=== PATIENT | female | born 1995 | race Caucasian/White ===

== ENCOUNTER 2017-10-04 09:07 | Day surgery (SDC) | payer BC ==
[2017-10-03 08:38] VITALS: BMI 28.3
--- NOTE | 2017-10-04 07:47 | P.GSHP ---
History of Present Illness H&P Date: 10/04/17 CHIEF COMPLAINT: GERD and colon screen HISTORY OF PRESENT ILLNESS: The patient is a 22-year-old female who presents with gastroesophageal reflux disease and change in bowel habits. Upper and lower endoscopy were offered for further evaluation and management. PAST MEDICAL HISTORY: Please see list. PAST SURGICAL HISTORY: Please see list. MEDICATIONS: Please see list. ALLERGIES: Please see list. SOCIAL HISTORY: No illicit drug use FAMILY HISTORY: No reports of Crohn disease or ulcerative colitis. REVIEW OF ORGAN SYSTEMS: CONSTITUTIONAL: No reports of fevers or chills. GI: Denies any blood in stools or constipation. PHYSICAL EXAM: VITAL SIGNS: Stable GENERAL: Well-developed pleasant in no acute distress. HEENT: No scleral icterus. Extraocular movements grossly intact. Moist buccal mucosa. NECK: Supple without lymphadenopathy. CHEST: Unlabored respirations. Equal bilateral excursions. CARDIOVASCULAR: Regular rate and rhythm. Distal 2+ pulses. ABDOMEN: Soft, nondistended. MUSCULOSKELETAL: No clubbing, cyanosis, or edema. ASSESSMENT: 1. Gastroesophageal reflux disease 2. Change in bowel habits. PLAN: 1. Recommend proceeding with an upper and lower endoscopy Past Medical History Past Medical History: GERD/Reflux Additional Past Medical History / Comment(s): bleeding with stools and constipation History of Any Multi-Drug Resistant Organisms: None Reported Additional Past Surgical History / Comment(s): cyst removed from tailbone,ORIF rt thumb with hardware later removed,wisdom teeth Past Anesthesia/Blood Transfusion Reactions: No Reported Reaction Smoking Status: Never smoker - Past Family History Father Family Medical History: No Reported History Medications and Allergies Home Medications Medication Instructions Recorded Confirmed Type Etonogestrel/Ethinyl Estradiol 1 each VG Q21D 10/03/17 10/03/17 History [Nuvaring Vaginal Ring] Omeprazole [PriLOSEC] 20 mg PO AC-BRKFST 10/03/17 10/03/17 History Polyethylene Glycol 3350 [Miralax] 17 gm PO DAILY 10/03/17 10/03/17 History Allergies Allergy/AdvReac Type Severity Reaction Status Date / Time erythromycin base Allergy Rash/Hives Verified 10/03/17 08:30 Penicillins Allergy Rash/Hives Verified 10/03/17 08:30
[~2017-10-04 09:07] MED LIST: LACTATED RINGERS 1,000 ML IV SCH
[2017-10-04 10:00] VITALS: TEMP 98
[2017-10-04] MEDS ORDERED: LIDOCAINE 1% 20 ML VIAL (10MG/ML) FOR IV START INTRADERMA ONE (10:09)
[2017-10-04] MEDS ORDERED: GLYCOPYRROLATE 0.2 MG/ML 2 ML VIAL ONE (10:26)
[2017-10-04] MEDS ORDERED: PROPOFOL 10 MG/ML 20 ML VIAL IV ONE (10:26)
[2017-10-04] MEDS ORDERED: LIDOCAINE 1% INJ 10MG/ML (20 ML MDV) ONE (10:26)
--- NOTE | 2017-10-04 10:41 | P.PCN ---
Date of Procedure: 10/04/17 Description of Procedure: PREOPERATIVE DIAGNOSIS: Gastroesophageal reflux disease. POSTOPERATIVE DIAGNOSIS: Gastritis. Gastroesophageal reflux disease. Diaphragmatic hiatal hernia without obstruction. OPERATION: Esophagogastroduodenoscopy with biopsies along antrum. SURGEON: Sarah Núñez MD ANESTHESIA: MAC. INDICATIONS: The patient is a 22-year-old female who presents with a history of reflux disease. Benefits and risks of the procedure were described. Informed consent was obtained. DESCRIPTION: The patient was brought into the endoscopy suite and laid in the left lateral decubitus position. An Olympus gastroscope was passed along the posterior oropharynx down to the distal esophagus where the squamocolumnar junction was encountered at 36 cm from the incisors. The stomach was entered and no bile reflux was found. Additional findings are listed below. Biopsies with cold forceps were obtained of the antrum. The first through third portion of the duodenum was examined and unremarkable. Retroflexion of the scope confirmed Hill grade 4 lower esophageal valve. The squamocolumnar junction demostrated LA grade B erosive esophagitis. The stomach was desufflated. The patient tolerated the procedure well. FINDINGS: Squamocolumnar junction 36 cm from the incisors. Diaphragmatic hiatus at 38 cm. Hiatal hernia 2 cm. Hill grade 3 lower esophageal valve. LA grade B erosive esophagitis. Chronic gastritis. No active duodenitis. RECOMMENDATIONS: Upper endoscopy as needed.
--- NOTE | 2017-10-04 10:57 | P.PCN ---
Date of Procedure: 10/04/17 Description of Procedure: PREOPERATIVE DIAGNOSIS: Change in bowel habits. Rectal bleeding. POSTOPERATIVE DIAGNOSIS: Change in bowel habits. Rectal bleeding. OPERATION: Colonoscopy beyond the splenic flexure. SURGEON: Sarah Núñez MD. ANESTHESIA: MAC. INDICATIONS: The patient is a 22-year-old female who presents for change in bowel habits and rectal bleeding. Benefits and risks were described and informed consent was obtained. DESCRIPTION OF PROCEDURE: The patient had undergone Gatorade, MiraLAX and Dulcolax prep. She had been brought into the operating room and laid in the left lateral decubitus position. After adequate intravenous sedation, the rectum was examined with 2% lidocaine jelly. No external hemorrhoids were encountered. The rectal tone was within normal limits. No lesions were palpated in the rectal vault. An Olympus colonoscope was advanced through a tortuous sigmoid bolus. She had extremely high splenic flexure. Separately she was repositioned to prone position. Despite multiple maneuvers including abdominal wall pressure, the scope was advanced beyond the splenic flexure however without visualization of the ascending colon. To prevent injury or harm to the patient the colonoscope was discontinued beyond the splenic flexure. The prep was excellent with clear visualization of the mucosal folds. The scope was removed with visualization of each mucosal fold. No scattered diverticulosis was encountered. No colonic polyps were found. No evidence of focal colitis was found. Retroflexion of the scope demonstrated no grade 1 internal hemorrhoids wit active bleeding or inflammation. The colon was desufflated. The patient had tolerated the procedure well. Withdrawal time was over 6 minutes. FINDINGS: No internal hemorrhoids, grade 1 No external prolapsed hemorrhoids. No arteriovenous malformations. No adenomatous polyps. No focal colitis. Redundant sigmoid colon and high splenic flexure. Resolved anal fissure. RECOMMENDATIONS: Lower endoscopy per screening guidelines. Plan - Discharge Summary New Discharge Prescriptions: No Action Polyethylene Glycol 3350 [Miralax] 17 gm PO DAILY Omeprazole [PriLOSEC] 20 mg PO AC-BRKFST Etonogestrel/Ethinyl Estradiol [Nuvaring Vaginal Ring] 1 each VG Q21D Discharge Medication List Etonogestrel/Ethinyl Estradiol [Nuvaring Vaginal Ring] 1 each VG Q21D 10/03/17 [ History] Omeprazole [PriLOSEC] 20 mg PO AC-BRKFST 10/03/17 [History] Polyethylene Glycol 3350 [Miralax] 17 gm PO DAILY 10/03/17 [History] Follow up Appointment(s)/Referral(s): Sarah Núñez MD [STAFF PHYSICIAN] - 10/10/17 Patient Instructions/Handouts: Hiatal Hernia (DC), *Surgery [facility] - (Anesthesia) Endoscopy Discharge Instructions Discharge Disposition: HOME SELF-CARE
[2017-10-04 11:03] VITALS: RESP 18
[2017-10-04 11:20] VITALS: BP 107/59; PULSE 72
== END 2017-10-04 11:59 | disposition home or self-care (01) ==
LOC: ORWHC2ENDO 09:07
PROVIDERS: ATTEND Surgery Plastic and Reconstructive Surgery
DX: K29.50 Unspecified chronic gastritis without bleeding (principal); K21.0 Gastro-esophageal reflux disease with esophagitis; K44.9 Diaphragmatic hernia without obstruction or gangrene; Q43.8 Other specified congenital malformations of intestine; R19.4 Change in bowel habit; K62.5 Hemorrhage of anus and rectum; Z79.899 Other long term (current) drug therapy; Z88.1 Allergy status to other antibiotic agents; Z88.0 Allergy status to penicillin
CPT/HCPCS: 81025; 88305; 45378; 43239; J2001; J2704

== ENCOUNTER 2020-03-11 16:15 | Inpatient (IN) | payer BC, OTHER ==
[2020-03-11] MEDS ORDERED: LIDOCAINE 0.5% (PF) 5 MG/ML (50 ML SDV) SQ PRN (16:27)
[2020-03-11] MEDS ORDERED: METHYLERGONOVINE 0.2 MG/ML 1 ML AMP IM PRN (16:27)
[2020-03-11] MEDS ORDERED: CARBOPROST TROMETHAMINE 250 MCG/ML 1 ML AMP IM PRN (16:27)
[2020-03-11] MEDS ORDERED: OXYTOCIN 10 UNIT/ML 1 ML VIAL IM PRN (16:27)
[2020-03-11] MEDS ORDERED: TERBUTALINE 1 MG/ML VIAL SQ PRN (16:27)
[2020-03-11] MEDS ORDERED: LACTATED RINGERS 1,000 ML IV SCH (16:30)
[2020-03-11] MEDS ORDERED: OXYTOCIN 30 UNITS/500 ML NS 30 UNIT in SALINE 1 500ML.BAG IV SCH (16:30)
[2020-03-11 17:21] LABS: Basophils % (A) 0 %; Eosinophils # (A) 0.1 k/uL (0-0.7); Eosinophils % (A) 1 %; HGB 11.7 gm/dL (11.4-16.0); Lymphocytes # (A) 1.5 k/uL (1.0-4.8); Lymphocytes % (A) 15 %; MCH 33.4 pg (25.0-35.0); MCHC 34.5 g/dL (31.0-37.0); MCV 96.8 fL (80.0-100.0); Mean Platelet Volume 7.9; Monocytes # (A) 0.4 k/uL (0-1.0); Monocytes % (A) 4 %; Neutrophils # (A) 8.2 k/uL (1.3-7.7); Neutrophils % (A) 79 %; Platelet Count 235 k/uL (150-450); RBC 3.51 m/uL (3.80-5.40); RDW 12.9 % (11.5-15.5); WBC 10.3 k/uL (3.8-10.6)
[2020-03-11] MEDS: BUTORPHANOL 1 MG/ML 1 ML VIAL IV PRN ×2 (19:37→21:35)
[2020-03-11] MEDS ORDERED: ROPIVACAINE 5MG/ML 20ML VIAL ONE (22:15)
[2020-03-11] MEDS ORDERED: SODIUM CHLORIDE 0.9% 100 ML BAG ONE (22:15)
[2020-03-11] MEDS ORDERED: fentaNYL (PF) 50 MCG/ML 5 ML AMP ONE (22:15)
--- NOTE | 2020-03-12 02:28 | P.HPOB ---
History of Present Illness H&P Date: 03/11/20 Chief Complaint: Induction of labor 24 year old presents at 39 weeks 3 days for induction of labor. Her cervix is 1-2/70/-2. She is not asmita. heart tones 130 with moderate variability and reactive. Review of Systems All systems: negative Constitutional: Denies chills, Denies fever Eyes: denies blurred vision, denies pain Ears, nose, mouth and throat: Denies headache, Denies sore throat Cardiovascular: Denies chest pain, Denies shortness of breath Respiratory: Denies cough Gastrointestinal: Denies abdominal pain, Denies diarrhea, Denies nausea, Denies vomiting Genitourinary: Denies dysuria, Denies hematuria Musculoskeletal: Denies myalgias Integumentary: Denies pruritus, Denies rash Neurological: Denies numbness, Denies weakness Psychiatric: Denies anxiety, Denies depression Endocrine: Denies fatigue, Denies weight change Past Medical History Past Medical History: GERD/Reflux Additional Past Medical History / Comment(s): Obstetric history: This is her first and she's had care with me since the first trimester. Blood type is A-, amylase negative, rubella immune, hepatitis B-, GBS negative, RPR nonreactive. History of Any Multi-Drug Resistant Organisms: None Reported Additional Past Surgical History / Comment(s): cyst removed from tailbone,ORIF rt thumb with hardware later removed,wisdom teeth Past Anesthesia/Blood Transfusion Reactions: No Reported Reaction Past Psychological History: No Psychological Hx Reported Smoking Status: Never smoker Past Alcohol Use History: Occasional Past Drug Use History: None Reported - Past Family History Father Family Medical History: AFIB, Hypertension Medications and Allergies Home Medications Medication Instructions Recorded Confirmed Type Ferrous Sulfate [Iron] 27 mg PO DAILY 03/11/20 03/11/20 History Pnv No.95/Ferrous Fum/Folic AC 1 each PO DAILY 03/11/20 03/11/20 History [ Multivitamin Tablet] Allergies Allergy/AdvReac Type Severity Reaction Status Date / Time erythromycin base Allergy Rash/Hives Verified 03/11/20 16:25 Penicillins Allergy Rash/Hives Verified 03/11/20 16:25 Exam Osteopathic Statement: *. No significant issues noted on an osteopathic structural exam other than those noted in the History and Physical/Consult. Vital Signs Temp Pulse Resp BP Pulse Ox 03/11/20 16:45 98.2 F 80 18 131/74 98 Intake and Output 03/11/20 03/11/20 03/12/20 14:59 22:59 06:59 Other: # Voids 1 Weight 87.543 kg Heart: Regular rate and rhythm Lungs: Clear to auscultation bilaterally Abdomen: Soft, nontender Extremities: Negative Homans sign Results Result Diagrams: 03/11/20 16:30 Abnormal Lab Results - Last 24 Hours (Table) 03/11/20 Range/Units 16:30 RBC 3.51 L (3.80-5.40) m/uL Neutrophils # 8.2 H (1.3-7.7) k/uL Assessment and Plan (1) Normal labor Current Visit: Yes Status: Acute Code(s): O80 - ENCOUNTER FOR FULL-TERM UNCOMPLICATED DELIVERY; Z37.9 - OUTCOME OF DELIVERY, UNSPECIFIED SNOMED Code(s): 61942290 Plan: 1. Induction of labor with amniotomy and Pitocin 2. Anticipate normal vaginal delivery
--- NOTE | 2020-03-12 02:29 | P.PROBDLV ---
Vaginal Delivery Note - . Vaginal Delivery Note: 24 year old presents at 39 weeks 3 days for induction of labor. Her cervix is 1-2/70/-2. She is not asmita. heart tones 130 with moderate variability and reactive. Amniotomy was performed at 1654, meconium fluid seen. Pitocin was also started. She was uncomfortable in a few hours and did get some Stadol. When she was about 4 centers dilated she did get an epidural was comfortable. Her cervix completely dilated at 1:23 AM. She pushed, delivered a viable male over intact perineum under epidural anesthesia at 2:06 AM. Head delivered OA, anterior shoulder delivered gentle downward guidance followed by posterior shoulder and rest of body. Nose and mouth bulb suctioned, cord clamped and cut, infant placed on mother's abdomen. Apgars 7, 9, weight 7 lbs. 7 oz. Placenta delivered spontaneously, intact with three-vessel cord at 2:08 AM. Vagina, cervix, and perineum were inspected. Second-degree midline laceration was repaired with 3-0 Vicryl. Estimated blood loss 200 mL. Mother and baby in stable condition.
[2020-03-12] MEDS ORDERED: OXYTOCIN 20 UNITS/1000 ML NS 1,000 ML IV SCH ×2 (03:00→03:30)
[2020-03-12] MEDS ORDERED: LANOLIN CREAM 5 GM TUBE TOPICAL PRN (03:22)
[2020-03-12] MEDS ORDERED: diphenhydrAMINE 50 MG CAP PO PRN (03:22)
[2020-03-12] MEDS ORDERED: BENZOCAINE/MENTHOL SPRAY 1 GM/SPRAY AEROSOL TOPICAL PRN (03:22)
[2020-03-12] MEDS ORDERED: SIMETHICONE 80 MG CHEWABLE PO PRN (03:22)
[2020-03-12] MEDS ORDERED: HYDROCORTISONE 2.5% RECTAL CREAM 30 GM TUBE RECTAL PRN (03:22)
[2020-03-12] MEDS ORDERED: ACETAMINOPHEN TAB 325 MG TAB PO PRN (03:22)
[2020-03-12] MEDS ORDERED: diphenhydrAMINE 50 MG/ML 1 ML VIAL IVP PRN ×2 (03:22)
[2020-03-12] MEDS ORDERED: ZOLPIDEM 5 MG TAB PO PRN (03:22)
[2020-03-12] MEDS ORDERED: diphenhydrAMINE 25 MG CAP PO PRN (03:22)
[2020-03-12] MEDS: IBUPROFEN 600 MG TAB PO PRN ×4 (03:41→23:17)
[2020-03-12] MEDS: SENNOSIDES-DOCUSATE SODIUM 1 EACH TAB PO SCH ×2 (07:41→23:18)
[2020-03-12 20:02] VITALS: RESP 16
[2020-03-13 07:55] LABS: Basophils # (A) 0.1 k/uL (0-0.2); Basophils % (A) 0 %; Eosinophils # (A) 0.2 k/uL (0-0.7); Eosinophils % (A) 2 %; HCT 28.5 % (34.0-46.0); Lymphocytes # (A) 2.4 k/uL (1.0-4.8); Lymphocytes % (A) 20 %; MCH 32.3 pg (25.0-35.0); MCHC 33.7 g/dL (31.0-37.0); MCV 95.6 fL (80.0-100.0); Mean Platelet Volume 7.6; Monocytes # (A) 0.5 k/uL (0-1.0); Monocytes % (A) 4 %; Neutrophils # (A) 8.4 k/uL (1.3-7.7); Neutrophils % (A) 72 %; Platelet Count 192 k/uL (150-450); RBC 2.98 m/uL (3.80-5.40); RDW 13.2 % (11.5-15.5); WBC 11.7 k/uL (3.8-10.6)
[2020-03-13 08:03] LABS: HGB 9.6 gm/dL (11.4-16.0)
--- NOTE | 2020-03-13 08:03 | P.DS ---
Providers Date of admission: 03/11/20 16:15 Expected date of discharge: 03/13/20 Attending physician: Sejal Stern Primary care physician: Stated None - Discharge Diagnosis(es) (1) Normal labor Current Visit: Yes Status: Resolved (2) Normal vaginal delivery Current Visit: Yes Status: Acute Hospital Course: Pt presented for induction of labor. She underwent a normal vaginal delivery without complication. Her pp course was uneventful. She denies N/V, F/C, CP, SOB or calf pain. Her lochia is minimal and pain controlled. She will be discharged home PPD #1 in stable condition to follow up with me in 6 weeks. Plan - Discharge Summary New Discharge Prescriptions: New Ibuprofen [Motrin] 600 mg PO Q6HR PRN #30 tab PRN Reason: Mild Pain Or Fever >= 100.5 No Action Pnv No.95/Ferrous Fum/Folic AC [ Multivitamin Tablet] 1 each PO DAILY Ferrous Sulfate [Iron] 27 mg PO DAILY Discharge Medication List Ferrous Sulfate [Iron] 27 mg PO DAILY 03/11/20 [History] Pnv No.95/Ferrous Fum/Folic AC [ Multivitamin Tablet] 1 each PO DAILY 03/11/20 [History] Ibuprofen [Motrin] 600 mg PO Q6HR PRN #30 tab 03/13/20 [Rx] Follow up Appointment(s)/Referral(s): Sejal Stern DO [Doctor of Osteopathic Medicine] - 6 Weeks Discharge Disposition: HOME SELF-CARE
[2020-03-13] MEDS: IBUPROFEN 600 MG TAB PO PRN (08:23)
[2020-03-13] MEDS: SENNOSIDES-DOCUSATE SODIUM 1 EACH TAB PO SCH (08:23)
[2020-03-13 10:53] VITALS: BP 118/79; PULSE 76; TEMP 98
== END 2020-03-13 12:40 | disposition home or self-care (01) | DRG 807 ==
LOC: 4FBP 16:15
PROVIDERS: ADMIT Obstetrics & Gynecology; ATTEND Obstetrics & Gynecology
PROC: 10E0XZZ Delivery of Products of Conception, External Approach (ICD-10-PCS; principal; 2020-03-12)
PROC: 0KQM0ZZ Repair Perineum Muscle, Open Approach (ICD-10-PCS; 2020-03-12)
PROC: 10907ZC Drainage of Amniotic Fluid, Therapeutic from Products of Conception, Via Natural or Artificial Opening (ICD-10-PCS; 2020-03-12)
PROC: 3E033VJ Introduction of Other Hormone into Peripheral Vein, Percutaneous Approach (ICD-10-PCS; 2020-03-12)
PROC: 3E0R3BZ Introduction of Anesthetic Agent into Spinal Canal, Percutaneous Approach (ICD-10-PCS; 2020-03-12)
DX: O77.0 Labor and delivery complicated by meconium in amniotic fluid (principal); Z37.0 Single live birth; O99.62 Diseases of the digestive system complicating childbirth; K21.9 Gastro-esophageal reflux disease without esophagitis; O70.1 Second degree perineal laceration during delivery; Z3A.39 39 weeks gestation of pregnancy; Z79.899 Other long term (current) drug therapy; Z98.890 Other specified postprocedural states; Z88.1 Allergy status to other antibiotic agents; Z88.0 Allergy status to penicillin; Z82.49 Family history of ischemic heart disease and other diseases of the circulatory system
CPT/HCPCS: 85025; 86850; 86870; 86880; 86900; 86901

== ENCOUNTER 2023-02-23 23:20 | Outpatient (CLI) | payer BC ==
[2023-02-24 00:28] VITALS: BP 131/77; PULSE 71; RESP 16; TEMP 97.1
--- NOTE | 2023-02-28 17:19 | P.MSEPDOC ---
Presenting Problems - Arrival Data Date of Arrival on Unit: 02/24/23 Time of Arrival on Unit: 23:20 Mode of Transport: Ambulatory - Complaint OB-Reason for Admission/Chief Complaint: Possible Onset of Labor Comment: pt. presents to triage due to contractions every 8-10min apart starting at 6pm. today, rating 5/10 pain Medical History - Information : 2 Para: 1 Term: 1 : 0 Abortions: Spontaneous or Elective: 0 Number of Living Children: 1 - Gestational Age Gestational Age by HOWARD (wks/days): 34 Weeks and 6 Days Review of Systems - Review of Systems Constitutional: No problems Breast: No problems ENT: No problems Cardiovascular: No problems Respiratory: No problems Gastrointestinal: No problems Genitourinary: No problems Musculoskeletal: No problems Neurological: No problems Skin: No problems Vital Signs - Temperature Temperature: 97.1 F Temperature Source: Temporal Artery Scan - Pulse Pulse Oximetery Pulse Rate: 71 Pulse Assessment Method: Automatic Cuff - Respirations Respiratory Rate: 16 Oxygen Delivery Method: Room Air O2 Sat by Pulse Oximetry: 97 - Blood Pressure Right Arm Blood Pressure: 131/77 Blood Pressure Mean: 95 Blood Pressure Source: Automatic Cuff Medical Screen Scoring - Cervical Exam Dilation (cm): 0 - Uterine Contractions Frequency From (mins): 3 Frequency To (mins): 8 Duration From (seconds): 40 Duration To (seconds): 90 Intensity: Mild Resting: Soft to palpation - Assessment - Baby A Baseline FHR: 130 Heart Rate - NICHD Category: Category I (Normal) NST: Reactive Physician Notification - Physician Notified Physician Notified Date: 02/24/23 Physician Notified Time: 23:58 Physician: Sejal Stern New Order Received: Yes - Notification Comment Comment: Dr. Stern checked patients cervix she gave patient discharge instructions and. patient is to follow up on same day as ultrasound 02/28/23Monday. Patient and . verbally aware of discharge instructions. Patient ambulated out of triage with Maternal Triage Index - Prompt/Priority 3 Prompt Priority 3: Yes Criteria Met for Priority 3: pt. presents to triage due to contractions every 8- 10min apart starting at 6pm. today, rating 5/[address] Stern checked patients cervix she gave patient discharge instructions and. patient is to follow up on same day as ultrasound 02/28/23Monday. Patient and . verbally aware of discharge instructions. Patient ambulated out of triage with Disposition - Disposition OB Disposition: Discharge to home Discharge Date: 02/24/23 Discharge Time: 00:00 I agree with the RN Medical Screening Exam: Yes Case reviewed; plan agreed upon as documented in EMR&OBIX.: Yes Diagnosis: FALSE LABOR BEFORE 37 COMPLETED WEEKS OF GEST, THIRD TRI
== END 2023-02-24 | disposition home or self-care (01) ==
LOC: FBPOP 23:20
PROVIDERS: ATTEND Obstetrics & Gynecology
DX: O47.03 False labor before 37 completed weeks of gestation, third trimester (principal); Z3A.34 34 weeks gestation of pregnancy; Z88.1 Allergy status to other antibiotic agents; Z88.0 Allergy status to penicillin
CPT/HCPCS: 59025; 99213

== ENCOUNTER 2023-03-29 01:33 | Outpatient (CLI) | payer BC ==
[2023-03-29 03:38] VITALS: BP 128/86; PULSE 65; RESP 16; TEMP 96.3
--- NOTE | 2023-03-29 07:19 | P.MSEPDOC ---
Presenting Problems - Arrival Data Date of Arrival on Unit: 03/29/23 Time of Arrival on Unit: 01:33 Mode of Transport: Ambulatory - Complaint OB-Reason for Admission/Chief Complaint: Possible Onset of Labor Comment: Patient presents to triage with complaints of contractions since 1800 yesterday evening every 4-5 minutes, rating pain with contractions 6/10. Patient denies vaginal bleeding and leaking fluid. Medical History - Information : 2 Para: 1 Term: 1 : 0 Abortions: Spontaneous or Elective: 0 Number of Living Children: 1 - Gestational Age Gestational Age by HOWARD (wks/days): 39 Weeks and 4 Days Review of Systems - Review of Systems Constitutional: No problems Breast: No problems ENT: No problems Cardiovascular: No problems Respiratory: No problems Gastrointestinal: No problems Genitourinary: No problems Musculoskeletal: No problems Neurological: No problems Skin: No problems Vital Signs - Temperature Temperature: 96.3 F Temperature Source: Temporal Artery Scan - Pulse Pulse Oximetery Pulse Rate: 65 Pulse Assessment Method: Pulse Oximetry - Respirations Respiratory Rate: 16 Oxygen Delivery Method: Room Air O2 Sat by Pulse Oximetry: 98 - Blood Pressure Right Arm Blood Pressure: 128/86 Blood Pressure Mean: 100 Blood Pressure Source: Automatic Cuff Medical Screen Scoring - Cervical Exam Membranes: Intact - Uterine Contractions Frequency From (mins): 4 Frequency To (mins): 5 Duration From (seconds): 40 Duration To (seconds): 80 Intensity: Moderate Resting: Soft to palpation - Assessment - Baby A Baseline FHR: 125 Heart Rate - NICHD Category: Category I (Normal) NST: Reactive Physician Notification - Physician Notified Physician Notified Date: 03/29/23 Physician Notified Time: 03:10 Physician: Maik Pires New Order Received: Yes Maternal Triage Index - Maternal Triage Index Presenting for scheduled procedure w/no complaint: No - Stat/Priority 1 Stat Priority 1: No - Urgent/Priority 2 Urgent Priority 2: No - Prompt/Priority 3 Prompt Priority 3: Yes Criteria Met for Priority 3: Dr. Pires returned PRESLEY pompa reported on maternal and status,. contraction pattern and no cervical changed noted after 1 hour. Reported on reactive NST. and negative amnisure. Orders to discharge home. Disposition - Disposition OB Disposition: Discharge to home Discharge Date: 03/29/23 Discharge Time: 03:27 I agree with the RN Medical Screening Exam: Yes Case reviewed; plan agreed upon as documented in EMR&OBIX.: Yes Diagnosis: FALSE LABOR AT OR AFTER 37 COMPLETED WEEKS OF GESTATION
== END 2023-03-29 03:27 | disposition home or self-care (01) ==
LOC: FBPOP 01:33
PROVIDERS: ATTEND Obstetrics & Gynecology
DX: O47.1 False labor at or after 37 completed weeks of gestation (principal); Z3A.39 39 weeks gestation of pregnancy; Z88.0 Allergy status to penicillin; Z88.1 Allergy status to other antibiotic agents
CPT/HCPCS: 59025; 84112; 99213

== ENCOUNTER 2023-04-01 04:42 | Outpatient (CLI) | payer BC ==
[2023-04-01 07:22] VITALS: BP 127/72; PULSE 79; RESP 16; TEMP 98
--- NOTE | 2023-04-02 08:48 | P.MSEPDOC ---
Presenting Problems - Arrival Data Date of Arrival on Unit: 04/01/23 Time of Arrival on Unit: 04:42 Mode of Transport: Ambulatory - Complaint OB-Reason for Admission/Chief Complaint: Possible Onset of Labor Medical History - Information : 2 Para: 1 Term: 1 : 0 Abortions: Spontaneous or Elective: 0 Number of Living Children: 1 - Gestational Age Gestational Age by HOWARD (wks/days): 40 Weeks and 0 Days Review of Systems - Review of Systems Constitutional: No problems Breast: No problems ENT: No problems Cardiovascular: No problems Respiratory: No problems Gastrointestinal: No problems Genitourinary: No problems Musculoskeletal: No problems Neurological: No problems Skin: No problems Vital Signs - Temperature Temperature: 98.0 F Temperature Source: Temporal Artery Scan - Pulse Pulse Oximetery Pulse Rate: 79 Pulse Assessment Method: Pulse Oximetry - Respirations Respiratory Rate: 16 Oxygen Delivery Method: Room Air O2 Sat by Pulse Oximetry: 97 - Blood Pressure Right Arm Blood Pressure: 127/72 Blood Pressure Mean: 90 Blood Pressure Source: Automatic Cuff Medical Screen Scoring - Cervical Exam Dilation (cm): 3 Effacement (%): 70 Station: -3 Membranes: Intact - Uterine Contractions Frequency From (mins): 2 Frequency To (mins): 4 Duration From (seconds): 70 Duration To (seconds): 110 Intensity: Moderate Resting: Soft to palpation - Assessment - Baby A Baseline FHR: 120 Heart Rate - NICHD Category: Category I (Normal) NST: Reactive Physician Notification - Physician Notified Physician Notified Date: 04/01/23 Physician Notified Time: 06:00 Physician: Sejal Stern - Notification Comment Comment: Dr. Stern notified of pt's arrival to. triage with c/o UC's q1-3min since 0300. Report given. including maternal and status, cervical exams. and POC RN discussed with pt. Dr. Stern in agreement. with pt to stay for a cervical recheck again in 1. hour. RN to call Dr. Stern with results. Maternal Triage Index - Maternal Triage Index Presenting for scheduled procedure w/no complaint: No - Stat/Priority 1 Stat Priority 1: No - Urgent/Priority 2 Urgent Priority 2: No - Prompt/Priority 3 Prompt Priority 3: No - Non-Urgent/Priority 4 Non-Urgent Priority 4: Yes Criteria Met for Priority 4: Pt is a with HOWARD 04/01/23 here at 40.0 weeks of gestation with c/o UC's. q1-3min apart since 0300 this AM. Pt reports that she was in triage a few days ago for. UC's as well and they have only progressed. Pt talking through UC's, coping well. Pt. denies any complications with the . Disposition - Disposition OB Disposition: Triage Discharge Date: 04/01/23 Discharge Time: 07:16 I agree with the RN Medical Screening Exam: Yes Case reviewed; plan agreed upon as documented in EMR&OBIX.: Yes Diagnosis: PRIMARY INADEQUATE CONTRACTIONS
== END 2023-04-01 07:16 | disposition home or self-care (01) ==
LOC: FBPOP 04:42
PROVIDERS: ATTEND Obstetrics & Gynecology
DX: O62.0 Primary inadequate contractions (principal); Z3A.40 40 weeks gestation of pregnancy; Z88.0 Allergy status to penicillin
CPT/HCPCS: 59025; 99213

== ENCOUNTER 2023-04-01 09:17 | Inpatient (IN) | payer BC ==
[2023-04-01] MEDS: LACTATED RINGERS 1,000 ML IV SCH ×3 (09:40→13:22)
[2023-04-01] MEDS ORDERED: METHYLERGONOVINE 0.2 MG/ML 1 ML AMP IM PRN (09:43)
[2023-04-01] MEDS ORDERED: miSOPROStoL 200 MCG TAB PO PRN (09:43)
[2023-04-01] MEDS ORDERED: OXYTOCIN 10 UNIT/ML 1 ML VIAL IM PRN (09:43)
[2023-04-01] MEDS ORDERED: LIDOCAINE 0.5% (PF) 5 MG/ML (50 ML SDV) SQ PRN (09:43)
[2023-04-01] MEDS ORDERED: TRANEXAMIC 1,000 MG/100ML-NACL 1,000 MG in EMPTY BAG 1 BAG IV PRN (09:43)
[2023-04-01] MEDS ORDERED: TERBUTALINE 1 MG/ML VIAL SQ PRN (09:43)
[2023-04-01] MEDS ORDERED: CARBOPROST TROMETHAMINE 250 MCG/ML 1 ML AMP IM PRN (09:43)
[2023-04-01] MEDS ORDERED: OXYTOCIN 30 UNITS/500 ML NS 30 UNIT in SALINE 1 500ML.BAG IV SCH ×2 (09:45→18:00)
[2023-04-01 09:53] LABS: Basophils % (A) 0 %; Eosinophils # (A) 0.1 k/uL (0-0.7); Eosinophils % (A) 1 %; HCT 30.5 % (34.0-46.0); HGB 10.8 gm/dL (11.4-16.0); Lymphocytes # (A) 1.5 k/uL (1.0-4.8); Lymphocytes % (A) 15 %; MCH 31.8 pg (25.0-35.0); MCHC 35.5 g/dL (31.0-37.0); MCV 89.5 fL (80.0-100.0); Mean Platelet Volume 9.8; Monocytes # (A) 0.5 k/uL (0-1.0); Monocytes % (A) 5 %; Neutrophils # (A) 7.7 k/uL (1.3-7.7); Neutrophils % (A) 78 %; Platelet Count 181 k/uL (150-450); RBC 3.41 m/uL (3.80-5.40); RDW 12.9 % (11.5-15.5); WBC 9.9 k/uL (3.8-10.6)
[2023-04-01] MEDS ORDERED: ROPIVACAINE 5 MG/ML 20 ML AMPULE ONE (10:20)
[2023-04-01] MEDS ORDERED: SODIUM CHLORIDE 0.9% 100 ML BAG ONE (10:20)
[2023-04-01] MEDS ORDERED: fentaNYL (PF) 50 MCG/ML 5 ML AMP ONE (10:20)
[2023-04-01] MEDS ORDERED: ZOLPIDEM 5 MG TAB PO PRN (18:00)
[2023-04-01] MEDS ORDERED: HYDROCORTISONE 2.5% RECTAL CREAM 30 GM TUBE RECTAL PRN (18:00)
[2023-04-01] MEDS ORDERED: diphenhydrAMINE 50 MG/ML 1 ML VIAL IVP PRN ×2 (18:00)
[2023-04-01] MEDS ORDERED: BENZOCAINE/MENTHOL SPRAY 1 GM/SPRAY AEROSOL TOPICAL PRN (18:00)
[2023-04-01] MEDS ORDERED: SIMETHICONE 80 MG CHEWABLE PO PRN (18:00)
[2023-04-01] MEDS ORDERED: diphenhydrAMINE 50 MG CAP PO PRN (18:00)
[2023-04-01] MEDS ORDERED: LANOLIN CREAM 5 GM TUBE TOPICAL PRN (18:00)
[2023-04-01] MEDS ORDERED: diphenhydrAMINE 25 MG CAP PO PRN (18:00)
[2023-04-01] MEDS: IBUPROFEN 600 MG TAB PO PRN (18:25)
[2023-04-01] MEDS: SENNOSIDES-DOCUSATE SODIUM 1 EACH TAB PO SCH (21:05)
[2023-04-01] MEDS: ACETAMINOPHEN TAB 325 MG TAB PO PRN (21:05)
[2023-04-02] MEDS: IBUPROFEN 600 MG TAB PO PRN ×3 (00:20→12:23)
[2023-04-02 00:56] VITALS: RESP 16
[2023-04-02] MEDS: ACETAMINOPHEN TAB 325 MG TAB PO PRN (03:42)
[2023-04-02 08:17] LABS: Basophils % (A) 0 %; Eosinophils # (A) 0.2 k/uL (0-0.7); Eosinophils % (A) 2 %; HCT 28.2 % (34.0-46.0); HGB 9.9 gm/dL (11.4-16.0); Lymphocytes # (A) 2.2 k/uL (1.0-4.8); Lymphocytes % (A) 17 %; MCH 32.2 pg (25.0-35.0); MCHC 35.2 g/dL (31.0-37.0); MCV 91.5 fL (80.0-100.0); Mean Platelet Volume 9.3; Monocytes # (A) 0.5 k/uL (0-1.0); Monocytes % (A) 4 %; Neutrophils # (A) 9.6 k/uL (1.3-7.7); Neutrophils % (A) 76 %; Platelet Count 172 k/uL (150-450); RBC 3.08 m/uL (3.80-5.40); RDW 13.1 % (11.5-15.5); WBC 12.6 k/uL (3.8-10.6)
[2023-04-02] MEDS: SENNOSIDES-DOCUSATE SODIUM 1 EACH TAB PO SCH (08:28)
--- NOTE | 2023-04-02 08:42 | P.HPOB ---
History of Present Illness H&P Date: 04/02/23 Chief Complaint: labor 27 year old presents at 40 weeks complaining of contractions. Her cervix is 3/80/-2 and she is asmita every 3 minutes. heart tones 135 with moderate variability and reactive. Review of Systems All systems: negative Constitutional: Denies chills, Denies fever Eyes: denies blurred vision, denies pain Ears, nose, mouth and throat: Denies headache, Denies sore throat Cardiovascular: Denies chest pain, Denies shortness of breath Respiratory: Denies cough Gastrointestinal: Denies abdominal pain, Denies diarrhea, Denies nausea, Denies vomiting Genitourinary: Denies dysuria, Denies hematuria Musculoskeletal: Denies myalgias Integumentary: Denies pruritus, Denies rash Neurological: Denies numbness, Denies weakness Psychiatric: Denies anxiety, Denies depression Endocrine: Denies fatigue, Denies weight change Past Medical History Past Medical History: GERD/Reflux Additional Past Medical History / Comment(s): Obstetric history: This is her 2nd and she's had care with me since the first trimester. Blood type is A-, abs negative, rubella immune, hepatitis B-, GBS negative, RPR nonreactive. History of Any Multi-Drug Resistant Organisms: None Reported Additional Past Surgical History / Comment(s): cyst removed from tailbone,ORIF rt thumb with hardware later removed,wisdom teeth, lypomah removed from back in december of 2021 Past Anesthesia/Blood Transfusion Reactions: No Reported Reaction Past Psychological History: Anxiety Additional Psychological History / Comment(s): pt on zoloft 50 mg daily Smoking Status: Never smoker Past Alcohol Use History: Occasional Past Drug Use History: None Reported - Past Family History Father Family Medical History: AFIB, Hypertension Additional Family Medical History / Comment(s): Afib Medications and Allergies Home Medications Medication Instructions Recorded Confirmed Type Pnv No.95/Ferrous Fum/Folic AC 1 each PO DAILY 03/11/20 04/01/23 History [ Multivitamin Tablet] Sertraline HCl [Zoloft] 1 tab PO DAILY 02/23/23 04/01/23 History Allergies Allergy/AdvReac Type Severity Reaction Status Date / Time Penicillins Allergy Rash/Hives Verified 04/01/23 09:43 Exam Osteopathic Statement: *. No significant issues noted on an osteopathic struct ural exam other than those noted in the History and Physical/Consult. Vital Signs Temp Pulse Resp BP Pulse Ox 04/02/23 04:00 97.4 F L 76 16 117/79 97 04/02/23 00:00 98.1 F 75 16 101/65 98 04/01/23 20:00 98.6 F 86 15 116/66 04/01/23 19:30 98.6 F 118 H 16 123/67 04/01/23 19:00 99.3 F 79 15 134/74 04/01/23 18:45 99.3 F 98 17 128/74 04/01/23 18:30 100 17 132/83 04/01/23 18:15 93 17 127/66 04/01/23 18:00 99.0 F 88 17 134/70 04/01/23 10:02 98.5 F 61 17 134/73 Intake and Output 04/01/23 04/02/23 04/02/23 22:59 06:59 14:59 Intake Total 492.8 480 Output Total 1250 500 Balance -757.2 -20 Intake: IV 480 480 Intake, IV Titration 12.8 Amount Oxytocin 30 Units/500 ml 12.8 Ns 30 unit In Saline 1 500ml.bag @ Per Protocol IV .Q0M [facility] Rx#:[id number] Output: Urine 1050 Emesis 500 Output, Quantitative 200 Blood Loss Other: # Voids 1 1 Heart: Regular rate and rhythm Lungs: Clear to auscultation bilaterally Abdomen: Soft, nontender Extremities: Negative Homans sign Results Result Diagrams: 04/02/23 07:53 Abnormal Lab Results - Last 24 Hours (Table) 04/01/23 04/02/23 Range/Units 09:44 07:53 WBC 12.6 H (3.8-10.6) k/uL RBC 3.41 L 3.08 L (3.80-5.40) m/uL Hgb 10.8 L 9.9 L (11.4-16.0) gm/dL Hct 30.5 L 28.2 L (34.0-46.0) % Neutrophils # 9.6 H (1.3-7.7) k/uL Assessment and Plan (1) Normal labor Current Visit: No Status: Acute Code(s): O80 - ENCOUNTER FOR FULL-TERM UNCOMPLICATED DELIVERY; Z37.9 - OUTCOME OF DELIVERY, UNSPECIFIED SNOMED Code(s): 89956767 Plan: 1. admit to [facility] 2. expectant management 3. anticipate normal vaginal delivery
--- NOTE | 2023-04-02 08:45 | P.PROBDLV ---
Vaginal Delivery Note - . Vaginal Delivery Note: 27 year old presents at 40 weeks complaining of contractions. Her cervix is 3/80/-2 and she is asmita every 3 minutes. heart tones 135 with moderate variability and reactive. Amniotomy performed at 9 AM and clear fluid noted. When she was uncomfortable she got an epidural. Pitocin augmentation did have to be started. She first cervix was completely dilated at 1745. She pushed, delivered a viable male over intact perineum under epidural a nesthesia at 1751. Head delivered OA, anterior shoulder delivered gentle downward guidance followed by posterior shoulder and rest of body. Nose and mouth bulb suctioned, cord cut, infant placed mother's abdomen. Apgars 9, 9, weight 8 lbs. 11 oz. Was then delivered spontaneously, intact with three-vessel cord at 1752. Vagina, cervix, perineum inspected. First-degree midline laceration was repaired with 3-0 Vicryl. Estimated blood loss 200 mL. Mother and baby in stable condition.
--- NOTE | 2023-04-02 08:46 | P.DS ---
Providers Date of admission: 04/01/23 09:17 Expected date of discharge: 04/02/23 Attending physician: Sejal Stern Primary care physician: Stated None - Discharge Diagnosis(es) (1) Normal labor Current Visit: No Status: Resolved (2) Normal vaginal delivery Current Visit: No Status: Acute Hospital Course: Patient presented in active labor. She underwent a normal vaginal delivery with Pitocin augmentation. course was uneventful. She denies nausea, vomiting, chest pain, shortness of breath or calf pain. Patient will be discharged home day #1 in stable condition to follow-up with me in 6 weeks. Plan - Discharge Summary New Discharge Prescriptions: New Ibuprofen [Motrin] 600 mg PO Q6HR PRN #30 tab PRN Reason: Mild Pain (Scale 1 To 3) No Action Pnv No.95/Ferrous Fum/Folic AC [ Multivitamin Tablet] 1 each PO DAILY Sertraline HCl [Zoloft] 1 tab PO DAILY Discharge Medication List Pnv No.95/Ferrous Fum/Folic AC [ Multivitamin Tablet] 1 each PO DAILY 03/11/20 [History] Sertraline HCl [Zoloft] 1 tab PO DAILY 02/23/23 [History] Ibuprofen [Motrin] 600 mg PO Q6HR PRN #30 tab 04/02/23 [Rx] Follow up Appointment(s)/Referral(s): Sejal Stern DO [Doctor of Osteopathic Medicine] - 6 Weeks Discharge Disposition: HOME SELF-CARE
[2023-04-02 17:12] VITALS: BP 120/77; PULSE 72; TEMP 98.3
== END 2023-04-02 18:33 | disposition home or self-care (01) | DRG 807 ==
LOC: 4FBP 09:17
PROVIDERS: ADMIT Obstetrics & Gynecology; ATTEND Obstetrics & Gynecology
PROC: 10E0XZZ Delivery of Products of Conception, External Approach (ICD-10-PCS; principal; 2023-04-01)
PROC: 0HQ9XZZ Repair Perineum Skin, External Approach (ICD-10-PCS; 2023-04-01)
PROC: 10907ZC Drainage of Amniotic Fluid, Therapeutic from Products of Conception, Via Natural or Artificial Opening (ICD-10-PCS; 2023-04-01)
DX: O99.344 Other mental disorders complicating childbirth (principal); Z37.0 Single live birth; Z3A.40 40 weeks gestation of pregnancy; O70.0 First degree perineal laceration during delivery; F41.9 Anxiety disorder, unspecified; K21.9 Gastro-esophageal reflux disease without esophagitis; Z28.311 Partially vaccinated for COVID-19; Z88.0 Allergy status to penicillin
CPT/HCPCS: 85025; 86850; 86900; 86901

== ENCOUNTER 2024-11-18 13:09 | Emergency (ER) | payer BC, OTHER ==
--- NOTE | 2024-11-18 13:45 | ED ---
Abdominal Pain HPI - General Chief Complaint: Abdominal Pain Stated Complaint: NVD, abd pain, 19 wks preg Time Seen by Provider: 11/18/24 13:44 Source: patient Mode of arrival: ambulatory Limitations: no limitations - History of Present Illness Initial Comments: 29-year-old G3, P2 approximately 19 weeks gestation presenting to the ER for evaluation of right upper quadrant abdominal discomfort. Patient states since Monday she has been having a right upper quadrant abdominal discomfort. She does report her right shoulder also has been bothering her. She also admits to nausea and vomiting. She reports she has tried liquids and cricket crackers and unable to keep this down. She also states on Monday she had mild diarrhea. She denies any hematic emesis, coffee ground emesis, hematochezia or melena. Denies any vaginal bleeding or discharge. Patient has tried Tylenol without relief of symptoms. Patient is following up with Dr. Stern. Denies any fevers, dizziness, lightheadedness, chest pain, shortness of breath or other complaints at this time. - Related Data Home Medications Medication Instructions Recorded Confirmed Pnv No.95/Ferrous Fum/Folic AC 1 each PO DAILY 03/11/20 04/01/23 [ Multivitamin Tablet] Sertraline HCl [Zoloft] 1 tab PO DAILY 02/23/23 04/01/23 Previous Rx's Medication Instructions Recorded Ibuprofen [Motrin] 600 mg PO Q6HR PRN #30 tab 04/02/23 Allergies Allergy/AdvReac Type Severity Reaction Status Date / Time Penicillins Allergy Rash/Hives Verified 04/01/23 09:43 Review of Systems ROS Statement: Those systems with pertinent positive or pertinent negative responses have been documented in the HPI. ROS Other: All systems not noted in ROS Statement are negative. Past Medical History Past Medical History: GERD/Reflux Additional Past Medical History / Comment(s): Obstetric history: This is her 2nd and she's had care with me since the first trimester. Blood type is A-, abs negative, rubella immune, hepatitis B-, GBS negative, RPR nonreactive. History of Any Multi-Drug Resistant Organisms: None Reported Additional Past Surgical History / Comment(s): cyst removed from tailbone,ORIF rt thumb with hardware later removed,wisdom teeth, lypomah removed from back in december of 2021 Past Anesthesia/Blood Transfusion Reactions: No Reported Reaction Past Psychological History: Anxiety Smoking Status: Never smoker Past Alcohol Use History: Occasional Past Drug Use History: None Reported - Past Family History Father Family Medical History: AFIB, Hypertension Additional Family Medical History / Comment(s): Afib General Exam Limitations: no limitations General appearance: alert, in no apparent distress Respiratory exam: Present: normal lung sounds bilaterally. Absent: respiratory distress, wheezes, rales, rhonchi, stridor Cardiovascular Exam: Present: regular rate, normal rhythm, normal heart sounds. Absent: systolic murmur, diastolic murmur, rubs, gallop, clicks GI/Abdominal exam: Present: soft, tenderness (mild RUQ), normal bowel sounds, other (uterus fundus palpated below umbilicus) Extremities exam: Present: normal inspection, full ROM, normal capillary refill. Absent: tenderness, pedal edema, joint swelling, calf tenderness Neurological exam: Present: alert, oriented X3, CN II-XII intact Skin exam: Present: warm, dry, intact, normal color. Absent: rash Course Vital Signs 11/18/24 11/18/24 11/18/24 13:17 15:23 15:56 Temperature 98.2 F 98.0 F 98.0 F Pulse Rate 84 84 88 Respiratory 20 20 18 Rate Blood Pressure 107/73 101/65 105/67 O2 Sat by Pulse 97 99 100 Oximetry Medical Decision Making - Medical Decision Making Was pt. sent in by a medical professional or institution (, PA, QUALITY TECH, urgent care, hospital, or detention...) When possible be specific @ -No Did you speak to anyone other than the patient for history (EMS, parent, family, police, friend...)? What history was obtained from this source @ -No Did you review nursing and triage notes (agree or disagree)? Why? @ -I reviewed and agree with nursing and triage notes Were old charts reviewed (outside hosp., previous admission, EMS record, old EKG, old radiological studies, urgent care reports/EKG's, detention records)? Report findings @ -No old charts were reviewed Differential Diagnosis (chest pain, altered mental status, abdominal pain women, abdominal pain men, vaginal bleeding, weakness, fever, dyspnea, syncope, headache, dizziness, GI bleed, back pain, seizure, CVA, palpatations, mental health, musculoskeletal)? @ -Differential Abdominal Pain Women: Appendicitis, Cholecystitis, diverticulosis, ischemic bowel, pancreatitis, hepatitis, UTI, gastroenteritis, AAA, incarcerated hernia, bowel obstruction, constipation, inflammatory bowel, hepatitis, peptic ulcer disease, splenic infarction, perforated viscus, vulvitis, ovarian torsion, PID, kidney stone, placenta abruption, this is not meant to be an all-inclusive list EKG interpreted by me (3pts min.). @ -None done X-rays interpreted by me (1pt min.). @ -None done CT interpreted by me (1pt min.). @ -None done U/S interpreted by me (1pt. min.). @ -Gallbladder ultrasound showing no gallstones or sonographic evidence of acute cholecystitis. Right sided hydronephrosis noted. US OB limited showed a single IUP heart rate 144 bpm. What testing was considered but not performed or refused? (CT, X-rays, U/S, labs)? Why? @ -None What meds were considered but not given or refused? Why? @ -None Did you discuss the management of the patient with other professionals (professionals i.e. , PA, QUALITY TECH, lab, RT, psych nurse, social organization professor, slip cover seamstress, teacher, tax revenue officer, case assistant)? Give summary @ -No Was smoking cessation discussed for >3mins.? @ -No Was critical care preformed (if so, how long)? @ -No Were there social determinants of health that impacted care today? How? (Homelessness, low income, unemployed, alcoholism, drug addiction, transportation, low edu. Level, literacy, decrease access to med. care, fpc, rehab)? @ -No Was there de-escalation of care discussed even if they declined (Discuss DNR or withdrawal of care, Hospice)? DNR status @ -No What co-morbidities impacted this encounter? (DM, HTN, Smoking, COPD, CAD, Cancer, CVA, ARF, Chemo, Hep., AIDS, mental health diagnosis, sleep apnea, morbid obesity)? @ - Was patient admitted / discharged? Hospital course, mention meds given and route, prescriptions, significant lab abnormalities, going to OR and other pertinent info. @ -Discharge. 29-year-old G3, P2 approximately 19 weeks gestation presenting to the ER for evaluation of right upper quadrant abdominal discomfort with nausea and vomiting. Upon rooming, history and physical exam completed. Vitals within acceptable limits. Patient in no signs of distress nontoxic-appearing. There is mild tenderness to the right upper quadrant with normal bowel sounds. No rebound or guarding. Laboratory studies obtained unimpressive with no significant electrolyte abnormality or acidosis noted. Serum hCG 44,091. Negative for infection. Negative ketones and proteins. Gallbladder ultrasound showing no gallstones or acute evidence of acute cholecystitis. Right sided hydronephrosis likely secondary to . OB ultrasound showing a single IUP with heart tones at 144 bpm. No obstetrical complaints. Patient given symptomatic treatment in the emergency department with IV fluids and Reglan, with improvement. Patient tolerated p.o. challenge with apple juice. Upon reevaluation, patient resting comfortably on stretcher no signs of acute distress. Results discussed with patient, all questions answered. I advised her to follow-up closely with [facility] for further evaluation and treatment. Strict return parameters discussed. Patient discharged in stable condition. Patient verbally expressed understanding agree with care plan. Case discussed with ED attending, Dr. Palomares. Undiagnosed new problem with uncertain prognosis? @ -No Drug Therapy requiring intensive monitoring for toxicity (Heparin, Nitro, Insulin, Cardizem)? @ -No Were any procedures done? @ -No Diagnosis/symptom? @ -Nausea and vomiting Acute, or Chronic, or Acute on Chronic? @ -Acute Uncomplicated (without systemic symptoms) or Complicated (systemic symptoms)? @ -Uncomplicated Side effects of treatment? @ -No Exacerbation, Progression, or Severe Exacerbation? @ -No Poses a threat to life or bodily function? How? (Chest pain, [place], [place], pneumonia, PE, COPD, DKA, ARF, appy, cholecystitis, CVA, Diverticulitis, Homicidal, Suicidal, threat to staff... and all critical care pts) @ -No - Lab Data Result diagrams: 11/18/24 14:03 11/18/24 14:03 Lab Results 11/18/24 11/18/24 11/18/24 Range/Units 14:03 14:03 14:03 WBC 8.3 (3.8-10.6) k/uL RBC 4.01 (3.80-5.40) m/uL Hgb 12.2 (11.4-16.0) gm/dL Hct 36.6 (34.0-46.0) % MCV 91.3 (80.0-100.0) fL MCH 30.4 (25.0-35.0) pg MCHC 33.3 (31.0-37.0) g/dL RDW 14.0 (11.5-15.5) % Plt Count 291 (150-450) k/uL MPV 7.0 Neutrophils % 79 % Lymphocytes % 13 % Monocytes % 5 % Eosinophils % 2 % Basophils % 0 % Neutrophils # 6.6 (1.3-7.7) k/uL Lymphocytes # 1.1 (1.0-4.8) k/uL Monocytes # 0.4 (0-1.0) k/uL Eosinophils # 0.1 (0-0.7) k/uL Basophils # 0.0 (0-0.2) k/uL Sodium 133 L (137-145) mmol/L Potassium 3.8 (3.5-5.1) mmol/L Chloride 101 (98-107) mmol/L Carbon Dioxide 23 (22-30) mmol/L Anion Gap 9 mmol/L BUN 8 (7-17) mg/dL Creatinine 0.52 (0.52-1.04) mg/dL Est GFR (CKD-EPI)AfAm >90 (>60 ml/min/1.73 sqM) Est GFR (CKD-EPI)NonAf >90 (>60 ml/min/1.73 sqM) Glucose 86 (74-99) mg/dL Plasma Lactic Acid Nael (0.7-2.0) mmol/L Calcium 9.0 (8.4-10.2) mg/dL Total Bilirubin 0.4 (0.2-1.3) mg/dL AST 33 (14-36) U/L ALT 23 (4-34) U/L Alkaline Phosphatase 48 (38-126) U/L Total Protein 6.6 (6.3-8.2) g/dL Albumin 3.8 (3.5-5.0) g/dL HCG, Quant 47950.1 mIU/mL Urine Color Colorless Urine Appearance Clear (Clear) Urine pH 7.5 (5.0-8.0) Ur Specific [place] 1.009 (1.001-1.035) Urine Protein Negative (Negative) Urine Glucose (UA) Negative (Negative) Urine Ketones Negative (Negative) Urine Blood Negative (Negative) Urine Nitrite Negative (Negative) Urine Bilirubin Negative (Negative) Urine Urobilinogen <2.0 (<2.0) mg/dL Ur Leukocyte Esterase Trace H (Negative) Urine WBC 1 (0-5) /hpf Ur Squamous Epith Cells 2 (0-4) /hpf 11/18/24 Range/Units 14:03 WBC (3.8-10.6) k/uL RBC (3.80-5.40) m/uL Hgb (11.4-16.0) gm/dL Hct (34.0-46.0) % MCV (80.0-100.0) fL MCH (25.0-35.0) pg MCHC (31.0-37.0) g/dL RDW (11.5-15.5) % Plt Count (150-450) k/uL MPV Neutrophils % % Lymphocytes % % Monocytes % % Eosinophils % % Basophils % % Neutrophils # (1.3-7.7) k/uL Lymphocytes # (1.0-4.8) k/uL Monocytes # (0-1.0) k/uL Eosinophils # (0-0.7) k/uL Basophils # (0-0.2) k/uL Sodium (137-145) mmol/L Potassium (3.5-5.1) mmol/L Chloride (98-107) mmol/L Carbon Dioxide (22-30) mmol/L Anion Gap mmol/L BUN (7-17) mg/dL Creatinine (0.52-1.04) mg/dL Est GFR (CKD-EPI)AfAm (>60 ml/min/1.73 sqM) Est GFR (CKD-EPI)NonAf (>60 ml/min/1.73 sqM) Glucose (74-99) mg/dL Plasma Lactic Acid Nael 0.7 (0.7-2.0) mmol/L Calcium (8.4-10.2) mg/dL Total Bilirubin (0.2-1.3) mg/dL AST (14-36) U/L ALT (4-34) U/L Alkaline Phosphatase (38-126) U/L Total Protein (6.3-8.2) g/dL Albumin (3.5-5.0) g/dL HCG, Quant mIU/mL Urine Color Urine Appearance (Clear) Urine pH (5.0-8.0) Ur Specific [place] (1.001-1.035) Urine Protein (Negative) Urine Glucose (UA) (Negative) Urine Ketones (Negative) Urine Blood (Negative) Urine Nitrite (Negative) Urine Bilirubin (Negative) Urine Urobilinogen (<2.0) mg/dL Ur Leukocyte Esterase (Negative) Urine WBC (0-5) /hpf Ur Squamous Epith Cells (0-4) /hpf - Radiology Data Radiology results: report reviewed, image reviewed Disposition Clinical Impression: Nausea and vomiting Disposition: HOME SELF-CARE Condition: Stable Additional Instructions: Follow-up with [facility]. Return to the ER for any new or worsening symptoms. Is patient prescribed a controlled substance at d/c from ED?: No Referrals: Jaqueline Thomas MD [Primary Care Provider] - 1-2 days Sejal Stern DO [Doctor of Osteopathic Medicine] - 1-2 days Time of Disposition: 15:47
[2024-11-18] MEDS: SODIUM CHLORIDE 0.9% 1,000 ML IV ONE (13:59)
[2024-11-18] MEDS: ONDANSETRON 4 MG/2 ML VIAL IVP STA (14:07)
[2024-11-18] MEDS: METOCLOPRAMIDE 5 MG/ML 2 ML VIAL IVP STA (14:10)
[2024-11-18 14:16] LABS: Basophils % (A) 0 %; Eosinophils # (A) 0.1 k/uL (0-0.7); Eosinophils % (A) 2 %; HCT 36.6 % (34.0-46.0); HGB 12.2 gm/dL (11.4-16.0); Lymphocytes # (A) 1.1 k/uL (1.0-4.8); Lymphocytes % (A) 13 %; MCH 30.4 pg (25.0-35.0); MCHC 33.3 g/dL (31.0-37.0); MCV 91.3 fL (80.0-100.0); Monocytes # (A) 0.4 k/uL (0-1.0); Monocytes % (A) 5 %; Neutrophils # (A) 6.6 k/uL (1.3-7.7); Neutrophils % (A) 79 %; Platelet Count 291 k/uL (150-450); RBC 4.01 m/uL (3.80-5.40); WBC 8.3 k/uL (3.8-10.6)
[2024-11-18 14:18] LABS: Appearance,Urine Clear (Clear); Bilirubin,Urine Negative (Negative); Blood,Urine Negative (Negative); Color,Urine Colorless; Glucose,Urine (UA) Negative (Negative); Ketones,Urine Negative (Negative); Leukocyte Esterase,Urine Trace (Negative); Nitrite,Urine Negative (Negative); PH, Urine 7.5 (5.0-8.0); Protein,Urine Negative (Negative); Specific Gravity,Urine 1.009 (1.001-1.035); Squamous Epithelial Cell,Urine 2 /hpf (0-4); Urobilinogen,Urine <2.0 mg/dL (<2.0); WBC,Urine 1 /hpf (0-5)
[2024-11-18 14:39] LABS: ALT 23 U/L (4-34); AST 33 U/L (14-36); African American GFR (CKD) >90 (>60 ml/min/1.73 sqM); Albumin 3.8 g/dL (3.5-5.0); Alkaline Phosphatase 48 U/L (38-126); Anion Gap 9 mmol/L; Blood Urea Nitrogen 8 mg/dL (7-17); Carbon Dioxide 23 mmol/L (22-30); Chloride 101 mmol/L (98-107); Glucose 86 mg/dL (74-99); Non-African American GFR(CKD) >90 (>60 ml/min/1.73 sqM); Potassium 3.8 mmol/L (3.5-5.1); Sodium 133 mmol/L (137-145); Total Bilirubin 0.4 mg/dL (0.2-1.3); Total Protein 6.6 g/dL (6.3-8.2)
--- NOTE | 2024-11-18 15:07 | US ---
EXAMINATION TYPE: US gallbladder DATE OF EXAM: 11/18/2024 COMPARISON: NONE CLINICAL INDICATION: Female, 29 years old with history of RUQ abd pain/nausea; RUQ pain and right nelly ed pain started 3 days ago. Patient is 18 weeks 5 days . TECHNIQUE: Grayscale and color Doppler imaging of the right upper quadrant. FINDINGS: EXAM MEASUREMENTS: Liver Length: 17.3 cm Gallbladder Wall: 0.25 cm CBD: 0.47 cm, color Doppler imaging was utilized to isolate the common bile duct for measurement. Right Kidney: 13.0 x 5.8 x 4.9 cm AIR TRAFFIC CONTROL SPECIALIST NOTES: Exam is limited due to gas. Pancreas: Tail was not well seen. Liver: Measures upper limits. Gallbladder: Appears wnl Evidence for sonographic Sewell's sign: No CBD: Appears wnl Right Kidney: Appears upper limits of normal. Appearance of hydronephrosis IMPRESSION: No gallstones or sonographic evidence for acute cholecystitis. [id number] right-sided hydroneph rosis is nonspecific finding in patient. [facility], , 11/18/2024 3:05 PM
--- NOTE | 2024-11-18 15:09 | US ---
EXAMINATION TYPE: US OB limited DATE OF EXAM: 11/18/2024 COMPARISON: NONE CLINICAL INDICATION: Female, 29 years old with history of heart tones; heart tones TECHNIQUE:: Transabdominal (TA) FINDINGS: GESTATIONAL AGE / DATING Physician Established: (18weeks/5 days) EDC: 04/16/2025 No growth performed on today?s study per ordering physician SURVEY HEART RATE: 144 bpm RHYTHM: Normal IMPRESSION: Live single intrauterine gestation is documented. [facility], , 11/18/2024 3:06 PM
[2024-11-18 15:24] VITALS: TEMP 98
[2024-11-18 15:57] VITALS: BP 105/67; PULSE 88; RESP 18
== END 2024-11-18 15:57 | disposition home or self-care (01) ==
LOC: EC 13:09
DX: O21.9 Vomiting of pregnancy, unspecified (principal); Z88.0 Allergy status to penicillin; Z3A.19 19 weeks gestation of pregnancy
CPT/HCPCS: 36415; 80053; 83605; 85025; 81001; 84702; 76815; 76705; 99284; 96374; 96361; J2765